=== PATIENT | female | born 1985 | race Caucasian/White ===

== ENCOUNTER 2016-11-29 15:56 | Emergency (ER) | payer MEDICAID ==
[2016-11-29 16:37] VITALS: BMI 24.1
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
[2016-11-29 17:44] VITALS: BP 137/98; PULSE 96; TEMP 98.1
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
== END 2016-11-29 18:15 | disposition home or self-care (01) ==
LOC: ED 15:56 → EDMC 18:15
DX: S62.356A Nondisplaced fracture of shaft of fifth metacarpal bone, right hand, initial encounter for closed fracture (principal); W22.01XA Walked into wall, initial encounter
CPT/HCPCS: 29125; 99283

== ENCOUNTER 2016-12-08 11:58 | Emergency (ER) | payer MEDICAID ==
[2016-12-08 12:14] VITALS: TEMP 98.4; BMI 24.7
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
[2016-12-08 13:42] VITALS: BP 130/77; PULSE 77
== END 2016-12-08 13:40 | disposition home or self-care (01) ==
LOC: EDMC 11:58
DX: S60.221A Contusion of right hand, initial encounter (principal); W22.01XA Walked into wall, initial encounter; Y93.89 Activity, other specified
CPT/HCPCS: 99282

== ENCOUNTER 2016-12-17 18:40 | Emergency (ER) | payer MEDICAID ==
[2016-12-17 19:01] VITALS: TEMP 98.8; BMI 24.6
[2016-12-17 19:17] LABS: AUTOMATED BASOPHIL 1.2 % (0-2); AUTOMATED EOSINOPHIL 0.2 % (0-5); AUTOMATED LYMPH 27.8 % (17-44); AUTOMATED MONOCYTE 4.9 % (3-10); AUTOMATED NEUTROPHIL 65.9 % (45-76); MPV 8.6 fL (7.4-10.4)
[2016-12-17 19:38] LABS: BLOOD UREA NITROGEN 7 MG/DL (7-17); CALCIUM 9.2 MG/DL (8.4-10.2); CALCULATED OSMOLALITY 266 MOs/Kg (270-290); CHLORIDE 104 mEq/L (98-107); GLUCOSE 95 MG/DL (70-99); LEUKOCYTES/URINE TRACE (NEGATIVE); NITRITE/URINE NEG (NEGATIVE); RBC/URINE 0-2 (0-5); SODIUM LEVEL 139 mEq/L (137-146); TOTAL PROTEIN 7.7 G/DL (6.3-8.2); URINE OCCULT BLOOD NEG (NEG/TRACE); WBC/URINE 0-2 (0-5)
[2016-12-17 19:39] LABS: PARTIAL THROMB. TIME 30.1 SEC (22-35); PT-INR 1.1
--- NOTE | 2016-12-17 20:57 | DIRPT ---
CLINICAL DATA: Chest pain. Panic attack. EXAM: PORTABLE CHEST 1 VIEW COMPARISON: None. FINDINGS: The heart size and mediastinal contours are within normal limits. Both lungs are clear. The visualized skeletal structures are unremarkable. IMPRESSION: No active disease. Electronically Signed By: Kaela Pulido On: 12/17/2016 20:55
--- NOTE | 2016-12-17 21:05 | EDPRACDOC ---
- General Information Chief Complaint: Chest Pain Stated Complaint: LT SIDED CP WITH PAIN DOWN LT ARM Time Seen by Provider: 12/17/16 20:59 Information Source: Patient Mode of Arrival: Car Home Medications: Home Medications Lurasidone HCl [Latuda] 60 mg PO QHS 10/16/15 Trazodone HCl 200 mg PO QHS 10/16/15 Bupropion HCl [Wellbutrin Sr] 200 mg PO BID 05/21/16 Buspirone HCl [Buspar] 20 mg PO QAM 05/21/16 Buspirone HCl [Buspar] 10 mg PO QHS 10/17/16 Ondansetron HCl [Zofran] 4 mg PO Q8H PRN #15 tab 10/17/16 Methylprednisolone [Medrol] 4 mg PO DAILY #1 tab.ds.pk 11/20/16 Ketoprofen 50 mg PO BID PRN #20 capsule 12/08/16 Allergies/Adverse Reactions: Allergies Allergy/AdvReac Type Severity Reaction Status Date / Time tramadol Allergy See Verified 12/17/16 18:58 Comments Penicillins AdvReac Severe Hives* Verified 12/17/16 18:58 - History of Present Illness Onset: 1300 HPI: C/o left side CP that radiates to left arm and neck, numb lips and tongue since 1300 today. Pain is dull, constant. Pt has hx of same symptoms with panic attacks, usually managed with anxiety meds. Comes to ED when anxiety meds don't stop the pain. Denies sob, fever, N/V/D, chnages in urine, BM, cough, sore throat. Med hx = ashtam, depression, panic d/o. Chest Pain Location: Reports: Left Chest Pain Radiation: Reports: Neck, Arm (L) Symptoms Occur: Reports: Suddenly, Other (panic) Cardiac Risk Factors: Reports: None Cardiac History of: Reports: Similar Pain in Past (with panaic attacks) Medications within 24 Hours: Reports: None Prehospital Care: Reports: None Pain Came On: Reports: Suddenly Pain Status: Present Now Pain Description: Reports: Other (dull) Pain Severity: Mild Pain Worsens With: Reports: Other (anxiety) Pain Improves With: Reports: Rest Associated Signs and Symptoms: Reports: None ED Past Medical History - History Reviewed Yes Nurses notes reviewed and agree except as marked - Patient Medical History Respiratory History: Reports: Asthma GI/ History: Reports: Gastroesophageal Reflux Psychological History: Reports: Depression (medicated), Anxiety - Social Medical History Smoking Status: Heavy tobacco smoker (5 or more cigarettes/day or daily pipe/ cigar) EDM Review of Systems - Review of Systems ROS Negative Except as Marked: Yes All systems reviewed and were negative except as marked Cardiovascular: Chest Pain Psychiatric: Anxiety, Depression - Physical Exam Constitutional: No apparent distress, Alert Oriented to: Time, Person, Place Last recorded Vital Signs: Last Vital Signs Temp 98.8 F 12/17/16 18:58 Pulse 91 12/17/16 18:58 Resp 18 12/17/16 18:58 BP 141/82 12/17/16 18:58 Pulse Ox 99 12/17/16 18:58 Oxygen Pulse Oxygen Saturation 99 O2 Device Room Air Oxygen Flow Rate Fraction of Inspired Oxygen ( FIO2) - HEENT Head: Normal Eye Exam: negative: Conjunctival Injection, Scleral Icterus Oropharynx: negative: Drooling TMJ: Normal Nose: No Symptoms Reported Neck: Normal - Respiratory/Cardiovascular Respiratory: Normal - CTA Cardiovascular: Normal - GI Auscultation: Normal Palpation: Normal Tenderness: Non tender - Musculoskeletal Back: Normal Extremities: Normal - Integumentary Skin: Normal - Neurologic Mood Description: Normal Thought: Coherent Perception: Normal ED Chest Pain Exam - Respiratory/Cardiovascular Respiratory: Normal - CTA Cardiovascular/Chest: Normal Radial Pulse: Normal Pedal Pulse: Normal Edema: negative: 1+, 2+, 3+, 4+, 5, 6 Chest Palpation: Normal - Action Patient received Aspirin within last 24 hours?: No ASA given in the ED: No - Results 12/17/16 19:05 12/17/16 19:05 WBC 10.9 xk/uL (3.8-10.8) H 12/17/16 19:05 RBC 4.26 xM/uL (4.20-5.40) 12/17/16 19:05 Hgb 14.5 g/dL (12.0-16.0) 12/17/16 19:05 Hct 42.0 % (36-47) 12/17/16 19:05 MCV 99 fL (81-99) 12/17/16 19:05 MCH 34.0 pg (27-32) H 12/17/16 19:05 MCHC 34.5 g/dl (33-36) 12/17/16 19:05 RDW 13.5 % (11.5-14.5) 12/17/16 19:05 Plt Count 286 xk/uL (130-400) 12/17/16 19:05 MPV 8.6 fL (7.4-10.4) 12/17/16 19:05 Neut % (Auto) 65.9 % (45-76) 12/17/16 19:05 Lymph % (Auto) 27.8 % (17-44) 12/17/16 19:05 [place] % (Auto) 4.9 % (3-10) 12/17/16 19:05 Eos % (Auto) 0.2 % (0-5) 12/17/16 19:05 Baso % (Auto) 1.2 % (0-2) 12/17/16 19:05 Absolute Neuts (auto) 7.09 xk/uL (1.7-8.2) 12/17/16 19:05 Absolute Lymphs (auto) 2.94 xk/uL (0.65-4.75) 12/17/16 19:05 PT 10.9 SEC (9.2-11.2) 12/17/16 19:05 INR 1.1 12/17/16 19:05 APTT 30.1 SEC (22-35) 12/17/16 19:05 Sodium 139 mEq/L (137-146) 12/17/16 19:05 Potassium 4.4 mEq/L (3.5-5.1) 12/17/16 19:05 Chloride 104 mEq/L (98-107) 12/17/16 19:05 Carbon Dioxide 25 mMOL/L (22-33) 12/17/16 19:05 Anion Gap 14 mEq/L (8-16) 12/17/16 19:05 BUN 7 MG/DL (7-17) 12/17/16 19:05 Creatinine 0.80 MG/DL (0.52-1.04) 12/17/16 19:05 Estimated GFR (MDRD) > 60 mL/min (>=60) 12/17/16 19:05 Glucose 95 MG/DL (70-99) 12/17/16 19:05 Calculated Osmolality 266 MOs/Kg (270-290) L 12/17/16 19:05 Calcium 9.2 MG/DL (8.4-10.2) 12/17/16 19:05 Total Bilirubin 0.6 MG/DL (0.2-1.3) 12/17/16 19:05 AST 24 IU/L (14-36) 12/17/16 19:05 ALT 20 IU/L (9-52) 12/17/16 19:05 Alkaline Phosphatase 58 IU/L (38-126) 12/17/16 19:05 Troponin I < 0.01 ng/mL (<.04) 12/17/16 19:05 Ogi-S-Sgbfxpzkpjq Pept 29 pg/mL (0-450) 12/17/16 19:05 Total Protein 7.7 G/DL (6.3-8.2) 12/17/16 19:05 Albumin 4.4 G/DL (3.5-5.0) 12/17/16 19:05 Urine Color Yellow 12/17/16 19:05 Urine Clarity Sl hzy 12/17/16 19:05 Urine pH 7.0 (5.0-8.0) 12/17/16 19:05 Ur Specific [place] 1.010 (1.003-1.035) 12/17/16 19:05 Urine Protein 1+ (NEG/TRACE) H 12/17/16 19:05 Urine Glucose (UA) Neg (NEGATIVE) 12/17/16 19:05 Urine Ketones Neg (NEGATIVE) 12/17/16 19:05 Urine Occult Blood Neg (NEG/TRACE) 12/17/16 19:05 Urine Nitrite Neg (NEGATIVE) 12/17/16 19:05 Urine Bilirubin Neg (NEGATIVE) 12/17/16 19:05 Urine Urobilinogen <2.0 MG/DL (0-1) 12/17/16 19:05 Ur Leukocyte Esterase Trace (NEGATIVE) H 12/17/16 19:05 Urine RBC 0-2 (0-5) 12/17/16 19:05 Urine WBC 0-2 (0-5) 12/17/16 19:05 Ur Epithelial Cells 2+ 12/17/16 19:05 Urine Mucus Sm amt (NEG/OCC) 12/17/16 19:05 Urine Test Neg (NEGATIVE) 12/17/16 19:05 Lab Results 12/17/16 12/17/1612/17/17 19:05 19:05 19:05 WBC 10.9 H RBC 4.26 Hgb 14.5 Hct 42.0 MCV 99 MCH 34.0 H MCHC 34.5 RDW 13.5 Plt Count 286 MPV 8.6 Neut % (Auto) 65.9 Lymph % (Auto) 27.8 [place] % (Auto) 4.9 Eos % (Auto) 0.2 Baso % (Auto) 1.2 Absolute Neuts (auto) 7.09 Absolute Lymphs (auto) 2.94 PT 10.9 INR 1.1 APTT 30.1 Sodium Potassium Chloride Carbon Dioxide Anion Gap BUN Creatinine Estimated GFR (MDRD) Glucose Calculated Osmolality Calcium Total Bilirubin AST ALT Alkaline Phosphatase Troponin I Vly-G-Mdsihylozhh Pept Total Protein Albumin Urine Color Urine Clarity Urine pH Ur Specific [place] Urine Protein Urine Glucose (UA) Urine Ketones Urine Occult Blood Urine Nitrite Urine Bilirubin Urine Urobilinogen Ur Leukocyte Esterase Urine RBC Urine WBC Ur Epithelial Cells Urine Mucus Urine Test Neg 12/17/16 12/17/16 19:05 19:05 WBC RBC Hgb Hct MCV MCH MCHC RDW Plt Count MPV Neut % (Auto) Lymph % (Auto) [place] % (Auto) Eos % (Auto) Baso % (Auto) Absolute Neuts (auto) Absolute Lymphs (auto) PT INR APTT Sodium 139 Potassium 4.4 Chloride 104 Carbon Dioxide 25 Anion Gap 14 BUN 7 Creatinine 0.80 Estimated GFR (MDRD) > 60 Glucose 95 Calculated Osmolality 266 L Calcium 9.2 Total Bilirubin 0.6 AST 24 ALT 20 Alkaline Phosphatase 58 Troponin I < 0.01 Ytf-E-Aivotbudfbx Pept 29 Total Protein 7.7 Albumin 4.4 Urine Color Yellow Urine Clarity Sl hzy Urine pH 7.0 Ur Specific [place] 1.010 Urine Protein 1+ H Urine Glucose (UA) Neg Urine Ketones Neg Urine Occult Blood Neg Urine Nitrite Neg Urine Bilirubin Neg Urine Urobilinogen <2.0 Ur Leukocyte Esterase Trace H Urine RBC 0-2 Urine WBC 0-2 Ur Epithelial Cells 2+ Urine Mucus Sm amt Urine Test Laboratory Results - last 24 hr 12/17/16 12/17/16 12/17/16 19:05 19:05 19:05 WBC 10.9 H RBC 4.26 Hgb 14.5 Hct 42.0 MCV 99 MCH 34.0 H MCHC 34.5 RDW 13.5 Plt Count 286 MPV 8.6 Neut % (Auto) 65.9 Lymph % (Auto) 27.8 [place] % (Auto) 4.9 Eos % (Auto) 0.2 Baso % (Auto) 1.2 Absolute Neuts (auto) 7.09 Absolute Lymphs (auto) 2.94 PT INR APTT Sodium 139 Potassium 4.4 Chloride 104 Carbon Dioxide 25 Anion Gap 14 BUN 7 Creatinine 0.80 Estimated GFR (MDRD) > 60 Glucose 95 Calculated Osmolality 266 L Calcium 9.2 Total Bilirubin 0.6 AST 24 ALT 20 Alkaline Phosphatase 58 Troponin I < 0.01 Dll-T-Bkugqbhtdmm Pept 29 Total Protein 7.7 Albumin 4.4 Urine Color Yellow Urine Clarity Sl hzy Urine pH 7.0 Ur Specific [place] 1.010 Urine Protein 1+ H Urine Glucose (UA) Neg Urine Ketones Neg Urine Occult Blood Neg Urine Nitrite Neg Urine Bilirubin Neg Urine Urobilinogen <2.0 Ur Leukocyte Esterase Trace H Urine RBC 0-2 Urine WBC 0-2 Ur Epithelial Cells 2+ Urine Mucus Sm amt Urine Test 12/17/16 12/17/16 19:05 19:05 WBC RBC Hgb Hct MCV MCH MCHC RDW Plt Count MPV Neut % (Auto) Lymph % (Auto) [place] % (Auto) Eos % (Auto) Baso % (Auto) Absolute Neuts (auto) Absolute Lymphs (auto) PT 10.9 INR 1.1 APTT 30.1 Sodium Potassium Chloride Carbon Dioxide Anion Gap BUN Creatinine Estimated GFR (MDRD) Glucose Calculated Osmolality Calcium Total Bilirubin AST ALT Alkaline Phosphatase Troponin I Dnj-G-Gyzrnebwggv Pept Total Protein Albumin Urine Color Urine Clarity Urine pH Ur Specific [place] Urine Protein Urine Glucose (UA) Urine Ketones Urine Occult Blood Urine Nitrite Urine Bilirubin Urine Urobilinogen Ur Leukocyte Esterase Urine RBC Urine WBC Ur Epithelial Cells Urine Mucus Urine Test Neg Laboratory Results 12/17/16 19:05 12/17/16 19:05 - EKG EKG #1 EKG Time: 18:52 -: Yes EKG interpreted by me Rate: bpm: 83 Rhythm: NSR ST: Normal - Diagnostic Imaging Chest Image interpreted by: Radiologist EXAM: PORTABLE CHEST 1 VIEW COMPARISON: None. FINDINGS: The heart size and mediastinal contours are within normal limits. Both lungs are clear. The visualized skeletal structures are unremarkable. IMPRESSION: No active disease. Electronically Signed By: Kaela Pulido On: 12/17/2016 20:55 Decision Time to Discharge: 21:08 - Departure Disposition: Home Condition: Stable Final Diagnosis: Anxiety Instructions: Chest Pain (ED) Education/Counseling Given To: Patient Education/Counseling Given Regarding: Diagnosis, Treatment, Prognosis, Follow Up Referrals: Juan Francisco Ramirez MD [Primary Care Provider] - One Week Additional Instructions: Follow up with primary care for anxiety. Return to ED for any new or worsening symptoms.
[2016-12-17 21:22] VITALS: BP 120/74; PULSE 84
== END 2016-12-17 21:15 | disposition home or self-care (01) ==
LOC: ED 18:40
DX: F41.9 Anxiety disorder, unspecified (principal)
CPT/HCPCS: 36415; 71010; 80053; 81001; 81025; 83880; 84484; 85025; 85610; 85730; 93005; 99283